=== PATIENT | female | born 2005 | race Caucasian/White ===

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

== ENCOUNTER → 2025-01-07 15:13 | Outpatient (BNVA) | payer MEDICAID, SELFPAY | PROVIDERS: Family Provider Family Medicine; PCP Family Medicine; Visit Provider Nurse Practitioner | DX: M79.604 Pain in right leg (principal) | CPT/HCPCS: 73590 ==

== ENCOUNTER → 2025-04-04 10:48 | Outpatient (BNVA) | payer MEDICAID, SELFPAY | PROVIDERS: PCP Family Medicine; Visit Provider Nurse Practitioner | DX: I10 Essential (primary) hypertension (principal); Z79.899 Other long term (current) drug therapy | CPT/HCPCS: 80048; 80061; 83036 ==

== ENCOUNTER → 2025-04-29 14:30 | Outpatient (BNVA) | payer MEDICAID, SELFPAY | PROVIDERS: PCP Family Medicine; Visit Provider Family Medicine | DX: R10.9 Unspecified abdominal pain (principal) | CPT/HCPCS: 81000; 87086 ==

== ENCOUNTER 2025-05-14 20:07 | Emergency (ER) | payer MEDICAID, SELFPAY ==
[2025-05-14 20:08] VITALS: BP 127/87; PULSE 99; RESP 20; TEMP 36.7; O2SAT 98; BMI 54.9
--- OUTSIDE RECORDS SUMMARY | 2025-05-14 20:13 | XMS_ITS | Clinical Summary ---
Author Organization [facility] Address [address] [facility] Attn: [place] [address] Care Team Providers Care Golf Club Manager Name Role Phone Balwinder Haynes MD Primary Care Provider [phone] Allergies No known active allergies Medications cetirizine (ZyrTEC) 10 mg tablet Take 1 Tablet (10 mg) by mouth daily. 90 Tablet 1 04/18/2020 Active diphenhydrAMINE (BENADRYL) 12.5 mg/5 mL solution Take 20 mL (50 mg) by mouth every 6 hours as needed for Allergies. 118 mL 1 04/18/2020 Active escitalopram oxalate (LEXAPRO) 10 mg tabletIndication s:Current severe episode of major depressive disorder with psychotic features, unspecified whether recurrent (CMS/HCC) TAKE ONE TABLET BY MOUTH EVERY MORNING 06/30/2021 Active ARIPiprazole (ABILIFY) 5 mg tabletIndication s:Current severe episode of major depressive disorder with psychotic features, unspecified whether recurrent (CMS/HCC) Take 1 Tablet (5 mg) by mouth daily. 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 [place] [id number] [facility] [address] [place] [address] Rosa Cantrell MD Noninfectious gastroenteritis, unspecified type (Primary Dx) from Last 3 Months Immunizations Immunization Administration Dates Next Due (ACTHIB/HIBERIX)(2 MOS-5 YRS /6 WKS-4 YRS) HAEMOPHILUS INFLUENZAE TYPE B VACCINE (HIB), PRP-T CONJUGATE, 4 DOSE, 0.5 ML IM 02/04/2009,2005,2005 (ADACEL/BOOSTRIX)(10 YR UP) TDAP VACCINE, 0.5ML, IM 02/13/2018 (GARDASIL)(9-45 YRS) HUMAN PAPILLOMAVIRUS VACCINE, TYPES 6, 11, 16, 18, QUADRIVALENT (4VHPV), 3 DOSE, IM 02/13/2018 (INFANRIX)(6 WKS-6 YRS) DIPT HERIA, TETANUS TOXOIDS, AND ACCELLULAR PERTUSSIS VACCINE (DTAP), 0.5 ML IM 02/04/2009,03/01/2006,2005,10/26 (IPOL)(6 WKS AND UP) POLIOVI KAREN VACCINE, INACTIVATED (IPV), 3 DOSE, SUBCUT OR IM 03/01/2006,2005,2005 (KINRIX/QUADRACEL)(4 - 6 YRS ) DIPHTHERIA, TETANUS TOXOIDS AND ACELLULAR PERTUSSIS VACCINE, POLIO, INACTIVATED (DTAP-IPV) (PF) IM 08/24/2010 (M-M-R II/PRIORIX)(12 MO UP) MEASLES, MUMPS AND RUBELLA VIRUS VACCINE, 0.5 ML IM/SUBCUT 08/24/2010,02/04/2009 (RECOMBIVAX HB/ENGERIX-B)(0- 19 YRS) HEPATITIS B VACCINE 5 MCG/0.5 ML OR 10 MCG/0.5 ML PED OR ADOL 3 DOSE (PF), IM 03/01/2006,2005,2005 (VARIVAX)(12 MOS UP)VARICELL A VIRUS VACCINE (PF) 0.5 ML, SUB CUT 08/24/2010,02/04/2009 Meningococcal A Conjugate Vaccine IM 02/13/2018 Meningococcal ACWY Vaccine, Unspecified Formulation 02/13/2018 Pneumococcal 7-valent conjug ate vaccine IM 03/01/2006,2005,2005 Family History Medical History Relation Name Comments Healthy Half-Brother Kranthi Asthma Maternal Grandfather COPD Maternal Grandfather Kidney Disease Maternal Grandmother Kidney Disease Mother Sobia polycystic ki dneys on peritoneal dialysis at home Healthy Sister 1 Winter Anxiety Sister 2 Depression Sister 2 Hx of inpatient admission Amblyopia Neg Hx Blindness Neg Hx Cataract Neg Hx Corneal Dystrophies Neg Hx Detachment/Tears Neg Hx Glaucoma Neg Hx [place]at[place]us Neg Hx Macular Degen Neg Hx Strabismus Neg Hx Relation Name Status Comments Father Juanito Alive Half-Brother Kranthi Alive Maternal Grandfather Alive Maternal Grandmother Mother Sobia Alive Paternal Grandfather Alive Paternal Grandmother Alive Sister 1 Winter Alive Sister 2 Alive Social History Tobacco Use Types Packs/Day Years Used Date Smoking Tobacco: Never Smokeless Tobacco: Never Alcohol Use Standard Drinks/Week Comments Never 0 (1 standard drink = 0.6 oz pur e alcohol) Adolescent Education Answer Date Record ed Getting School Help Needed Not on file 04/01 Comments No Sex and Gender Information Value Date Recorded Sex Assigned at Not on file Legal Sex Female 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 Gender Identity Not on file Sexual Orientation Not on file Last Filed Vital Signs Vital Sign Reading Time Taken Comments Blood Pressure 116/72 07/17/2021 4:40 PM CDT Pulse 102 07/17/2021 4:40 PM CDT Temperature 36.7 C (98 F) 07/17/2021 4:40 PM CDT Respiratory Rate 16 07/17/2021 4:40 PM CDT Oxygen Saturation 99% 07/17/2021 4:40 PM CDT Room Air Inhaled Oxygen Concentration - - Weight 118.7 kg (261 lb 9.6 oz) 07/17/2021 4:40 PM CDT Height 175.3 cm (5' 9 ) 07/17/2021 4:40 PM CDT Body Mass Index 38.63 07/17/2021 4:40 PM CDT Body Mass Index Percentile 99.36% 07/17/2021 4:4 0 PM CDT Growth Chart: CDC (Girls, 2- 20 Years) Plan of Treatment Upcoming Encounters Date Type Department Care Team (Late st Contact Info) Description 2025 8:00 AM FIELD TRAFFIC INVESTIGATOR Office Visit [facility] [place] [address] [facility] [address] [place] [phone] Nirmal Tam FNP [address] [facility] [address] [place] [phone] Health Maintenance Due Date Last Done Comments CHLAMYDIA SCREENING (ANNUAL) 11-24 YEARS 2016 HPV VACCINES (2 - 2-dose series) 08/15/2018 02/14/20 18 INFLUENZA VACCINE (#1) 2025 DTAP/TDAP/TD VACCINES (7 - T d or Tdap) 02/14/2028 02/13/2018, 08/24/2010, 02/04/2009, Additional history exists HEPATITIS B VACCINES Completed 03/01/2006, 2005, 2005 Insurance [facility] MEDICAID Care Teams Golf Club Manager Relationship Specialty Start Date End Date Balwinder Haynes MD [address] [place] [address] PCP - General Family Practice 02/02/18
--- OUTSIDE RECORDS SUMMARY | 2025-05-14 20:14 | XMS_ITS | Encounter Summary ---
Author Organization [email or web address] Address [address] [address] Phone Care Team Providers Care Photocomposing Machine Operator Name Role Phone Rosa Cantrell MD Primary Care Provider [phone] Reason for Visit * Reason Comments Med Refill Encounter Details Date Type Department Care Team (Late st Contact Info) Description 12/23/2024 Refill [email or web address] [address] [address] Michel Duff MD [address] [address] Obesity; Polycystic kidney Social History Tobacco Use Types Packs/Day Years Used Date Smoking Tobacco: Never Smokeless Tobacco: Never Alcohol Use Standard Drinks/Week Comments Never 0 (1 standard drink = 0.6 oz pur e alcohol) Comments No Sex and Gender Information Value Date Recorded Sex Assigned at Not on file Legal Sex Female 10:34 AM EDT Gender Identity Not on file Sexual Orientation Not on file documented as of this encounter Plan of Treatment Upcoming Encounters Date Type Department Care Team (Late st Contact Info) Description 05/22/2025 1:50 PM CDT Office Visit [email or web address] [address] [place] [address] Michel Duff MD [address] [facility] [address] [address] documented as of this encounter Visit Diagnoses Diagnosis Obesity Polycystic kidney documented in this encounter Care Teams Photocomposing Machine Operator Relationship Specialty Start Date End Date Rosa Cantrell MD [address] [place] [id number] PCP - General Family Medicine 02/17/23 documented as of this encounter
--- OUTSIDE RECORDS SUMMARY | 2025-05-14 20:14 | XMS_ITS | Clinical Summary ---
Author Organization [facility] Address [address] [address] Care Team Providers Care Collection Administrator Name Role Phone Balwinder Haynes MD Primary Care Provider [phone] Allergies No known active allergies Medications ketoconazole (NIZORAL) 1 % Shampoo Use as directed to affected areas 200 mL 09/25/2019 Active ondansetron (Zofran ODT) 4 mg Tablet, Rapid Dissolve Take 1 Tablet (4 mg) by mouth every 8 hours as needed for Nausea/Emesis . Dissolve tablet on top of tongue, then swallow with saliva. 20 Tablet 09/25/2019 Active cetirizine (ZyrTEC) 10 mg tablet Take 1 Tablet (10 mg) by mouth daily. 90 Tablet 1 04/18/2020 Active diphenhydrAMINE (BENADRYL) 12.5 mg/5 mL solution Take 20 mL (50 mg) by mouth every 6 hours as needed for Allergies. 118 mL 1 04/18/2020 Active prednisoLONE (PRELONE) 15 mg/5 mL solution 15 mls PO for 4 days , then 10 mls for 3 days, then 5 ml for 3 days, then 2.5 mls for 3 days then 2.5 mls every other day for 3 doses. 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 Old exam most consistent with bilateral [place] with pseudo OA IO OD>OS, fixes OD. No neuroophthalmic pattern seen, pt cannot fuse. 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 Old surgical records to see mentioned bifrontal advancement, but no specific mention that trochlea had surgical manipulation. Strongly suspect patient is suppressing left eye, so surgical repair is optional and cosmetic at this time. Assessment & Plan (08/23/2018 2:50 PM DIRECTOR PROSPECT): SENSORIMOTOR EXAM ANALYSIS: Difficult end point with measurements due to poor vision OS. Exam most consistent with bilateral [place] with pseudo OA IO OD>OS, fixes OD. No neuroophthalmic pattern seen, pt cannot fuse. 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 Will try to get old surgical records to see what type of surgery done in past, and if trochlea had surgical repair. Strongly suspect patient is suppressing left eye, so surgical repair is optional and cosmetic at this time. Irregular astigmatism of left eye 08/23/2018 Assessment & Plan (08/27/2019 11:39 AM DIRECTOR PROSPECT): . At her last complete eye exam patient was found to have severe astigmatism in the left eye and myopia with mild astigmatism in the right eye. Patient was referred to our corneal service where corneal thinning was noted with a suspicion for keratoconus and was asked to return in 6 months. Patient is currently not wearing her full cycloplegic refraction of the left eye due to a decrease in her best corrected visual acuity. Assessment & Plan (08/23/2018 2:51 PM DIRECTOR PROSPECT): Severe, will not tolerate full Rx. No gross signs of keratoconus on corneal exam but measurements suggestive of this. Recommend corneal topography and evaluation by cornea service to refer for cross linking PRN. Amblyopia, refractive, left 08/23/2018 Assessment & Plan (08/27/2019 11:35 AM DIRECTOR PROSPECT): Patient currently wearing less than full cycloplegic refraction left eye, too old to reverse refractive amblyopia. Assessment & Plan (08/23/2018 1:50 PM DIRECTOR PROSPECT): Severe anisometropia, too old for patching therapy. Myopia of both eyes 08/23/2018 Assessment & Plan (08/23/2018 2:48 PM DIRECTOR PROSPECT): Pt complaint at this time is blurriness of vision suspect is suppressing vision with left eye. Will give full Rx OD and partial Rx OS to help with BCVA. 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 Abnormal head shape 02/14/2018 Cafe au lait spots 02/14/2018 Ptosis of left eyelid 02/14/2018 Family history of polycystic kidney disease 01/2018 Immunizations Immunization Administration Dates Next Due (ACTHIB/HIBERIX)(2 [...] Family History Medical History Relation Name Comments Asthma Maternal Grandfather COPD Maternal Grandfather Kidney Disease Maternal Grandmother Kidney Disease Mother Sobia polycystic ki dneys on peritoneal dialysis at home Healthy Sister Winter Amblyopia Neg Hx Blindness Neg Hx Cataract Neg Hx Corneal Dystrophies Neg Hx Detachment/Tears Neg Hx Glaucoma Neg Hx Keratoconus Neg Hx Macular Degen Neg Hx Strabismus Neg Hx Relation Name Status Comments Brother [place] Alive Father Juanito Alive Maternal Grandfather Alive Maternal Grandmother Mother Sobia Alive Paternal Grandfather Alive Paternal Grandmother Alive Sister Winter Alive Social History Tobacco Use Types Packs/Day Years Used Date Smoking Tobacco: Never Smokeless Tobacco: Never Comments No Sex and Gender Information Value Date Recorded Sex Assigned at Not on file Legal Sex Female 10:48 AM CDT Gender Identity Not on file Sexual Orientation Not on file Last Filed Vital Signs Vital Sign Reading Time Taken Comments Blood Pressure 114/72 04/22/2020 8:15 AM CDT Pulse 98 04/22/2020 8:15 AM CDT Temperature 36.7 C (98.1 F) 04/22/2020 8:15 AM CDT Respiratory Rate 18 04/22/2020 8:15 AM CDT Oxygen Saturation 94% 04/22/2020 8:15 AM CDT Room Air Inhaled Oxygen Concentration - - Weight 122 kg (269 lb) 04/22/2020 8:15 AM CDT Height 170.2 cm (5' 7 ) 04/22/2020 8:15 AM CDT Body Mass Index 42.13 04/22/2020 8:15 AM CDT Body Mass Index Percentile 99.91% 04/22/2020 8:1 5 AM CDT Growth Chart: CDC (Girls, 2- 20 Years) Plan of Treatment Health Maintenance Due Date Last Done Comments CHLAMYDIA SCREENING (ANNUAL) 11-24 YEARS 2016 HPV VACCINES (2 - 2-dose series) 08/15/2018 02/14/20 18 Preventative Visit-Managed Medicaid 2024 05/02/2019, 02/13/2018 INFLUENZA VACCINE (#1) 2025 DTAP/TDAP/TD VACCINES (7 - T d or Tdap) 02/14/2028 02/13/2018, 08/24/2010, 02/04/2009, Additional history exists HEPATITIS B VACCINES Completed 03/01/2006, 2005, 2005 Insurance [facility] MEDICAID Care Teams Collection Administrator Relationship Specialty Start Date End Date Balwinder Haynes MD [address], [place] [address] PCP - General Family Practice 02/02/18
--- OUTSIDE RECORDS SUMMARY | 2025-05-14 20:14 | XMS_ITS | Clinical Summary ---
Author Organization [facility] Address [address] [place] [id number] Care Team Providers Care Boat Diesel Motor Mechanic Name Role Phone Rosa Cantrell MD Primary Care Provider [phone] Allergies No known active allergies Medications cetirizine (ZyrTEC) 10 MG tablet Take 10 mg by mouth in the morning. Active diphenhydrAMINE (BENADRYL) 12.5 MG/5ML elixir Take 50 mg by mouth every 6 (six) hours if needed Active spironolactone (ALDACTONE) 25 MG tablet Take 25 mg by mouth 1 (one) time each day Active citalopram (CeleXA) 40 MG tablet Take 40 mg by mouth 1 (one) time each day Active traZODone (DESYREL) 50 MG tablet Take 50 mg by mouth every night Active hydrOXYzine (ATARAX) 25 MG tablet Take 1 tablet by mouth 3 (three) times a day if needed 023 Active omeprazole (PriLOSEC) [address] capsule Take 20 mg by mouth 1 (one) time each day 023 Active ondansetron ODT (ZOFRAN-ODT) 4 MG dispersible tablet 1 TABLET DISSOLVED ON TONGUE EVERY 6 HOURS NEEDED FOR NAUSEA AND VOMITING 023 Active lisinopril 20 MG tablet Take 20 mg by mouth 1 (one) time each day 024 Active Invega Sustenna 156 MG/ML suspension prefilled syringe INJECT INTRAMUSCULARLY every 30 DAYS Active propranolol (INDERAL) 20 MG tablet TAKE ONE TABLET BY MOUTH THREE TIMES A DAY NEEDED FOR ANXIETY Active tiZANidine (ZANAFLEX) 2 MG tablet TAKE ONE TABLET BY MOUTH TWICE DAILY NEEDED FOR muscle spasticity Active cholestyramine (QUESTRAN) 4 GM/DOSE powder Take 4 g by mouth in the morning and 4 g at noon and 4 g in the evening. Take with meals. 024 Active Ozempic, 0.25 or 0.5 MG/DOSE, 2 MG/3ML solution pen-injectorInd ications:Obesit y,Polycystic kidney,Essentia l (primary) hypertension inject 0.25mg UNDER THE SKIN EVERY 7 DAYS FOR 28 DAYS, THEN 0.5mg EVERY 7 DAYS FOR 28 DAYS 3 mL 025 Active Ozempic, 0.25 or 0.5 MG/DOSE, 2 MG/3ML solution pen-injectorInd ications:Obesit y,Polycystic kidney,Essentia l (primary) hypertension inject 0.25mg UNDER THE SKIN EVERY 7 DAYS FOR 28 DAYS, THEN 0.5mg EVERY 7 DAYS FOR 28 DAYS 3 mL 025 2024 Discontinued Active Problems Problem Noted Date Diagnosed Date Autosomal dominant polycystic kidney disease 12/2023 Essential (primary) hypertension 12/15/2023 Morbid obesity 12/15/2023 Family history of polycystic kidney disease 01/2018 Encounters Date Type Department Care Team Description 04/15/2025 [facility] [address] [facility] [address] [place] [id number] Radha Haley NP Obesity; Polycystic kidney; Essential (primary) hypertension 03/12/2025 [facility] [address] [place] [address] [place] [phone] Radha Haley NP Obesity; Polycystic kidney; Essential (primary) hypertension 02/11/2025 [facility] [address] [address] [place] [phone] Radha Haley NP Obesity; Polycystic kidney; Essential (primary) hypertension from Last 3 Months Family History Medical History Relation Comments Kidney disease Brother Kidney disease Maternal Grandmother Kidney disease Mother Relation Status Comments Brother Alive Maternal Grandmother Alive Mother Alive Social History Tobacco Use Types Packs/Day Years Used Date Smoking Tobacco: Never Smokeless Tobacco: Never Tobacco Cessation:Counseling Given: Not Answered Alcohol Use Standard Drinks/Week Comments Never 0 (1 standard drink = 0.6 oz pur e alcohol) Comments No Sex and Gender Information Value Date Recorded Sex Assigned at Not on file Legal Sex Female 10:34 AM EDT Gender Identity Not on file Sexual Orientation Not on file Last Filed Vital Signs Vital Sign Reading Time Taken Comments Blood Pressure 138/70 11/20/2024 11:02 AM CDT Pulse 91 11/20/2024 10:24 AM CDT Temperature - - Respiratory Rate - - Oxygen Saturation 97% 11/20/2024 10:24 AM CDT Inhaled Oxygen Concentration - - Weight 167 kg (368 lb) 11/20/2024 10:24 AM CDT Height 172.7 cm (5' 8 ) 11/20/2024 10:24 AM CDT Body Mass Index 55.95 11/20/2024 10:24 AM CDT Plan of Treatment Upcoming Encounters Date Type Department Care Team (Late st Contact Info) Description 05/22/2025 1:50 PM CDT Office Visit [facility] [address] [place] [address] Michel Duff MD [address] [address] Health Maintenance Due Date Last Done Comments Pneumococcal Vaccine: Peds ( 0 to 5 Years) and At-Risk Patients (6 to 49 Years) (1 of 2 - PCV) 2024 03/01/2006, 2005, 2005 Influenza Vaccine (#1) 2025 Hepatitis B Vaccine Completed 03/01/2006, 2005, 2005 Insurance Medicaid [place] ([facility]) Care Teams Boat Diesel Motor Mechanic Relationship Specialty Start Date End Date Rosa Cantrell MD [address] [id number] PCP - General Family Medicine 02/17/23
--- OUTSIDE RECORDS SUMMARY | 2025-05-14 20:14 | XMS_ITS | Encounter Summary ---
Author Organization [facility] [facility] [facility], [facility] Address [address] [facility] [place] [address] [place] [address] Phone Care Team Providers Care Horticulture Supervisor Name Role Phone Rosa Cantrell MD Primary Care Provider [phone] Encounter Details Date Type Department Care Team (Late st Contact Info) Description 02/17/2023 Orders Only [facility] [address] [facility] [place] [address] [place] [address] Polycystic kidney, unspecified type Social History Tobacco Use Types Packs/Day Years Used Date Smoking Tobacco: Never Assessed Comments Unknown Sex and Gender Information Value Date Recorded Sex Assigned at Not on file Legal Sex Female 10:34 AM EDT Gender Identity Not on file Sexual Orientation Not on file documented as of this encounter Plan of Treatment Upcoming Encounters Date Type Department Care Team (Late st Contact Info) Description 05/22/2025 1:50 PM CDT Office Visit [facility] [address] [place], [place] [id number] Michel Duff MD [address] [facility] [place] [address] [place] [address] documented as of this encounter Visit Diagnoses Diagnosis Polycystic kidney, unspecified type documented in this encounter Care Teams Horticulture Supervisor Relationship Specialty Start Date End Date Rosa Cantrell MD [address], [place] [address] PCP - General Family Medicine 02/17/23 documented as of this encounter
[2025-05-14 20:38] LABS: Glucose Urine UA Negative (Normal); Nitrate Urine Negative (Negative); Specific Gravity, Urine 1.019 (1.005-1.030)
[2025-05-14 20:43] LABS: Add Urine Microscopic? YES
== END 2025-05-14 21:20 | disposition left against medical advice (07) ==
LOC: ER 20:12
PROVIDERS: Emergency Provider Family Medicine; PCP Family Medicine
DX: Z01.89 Encounter for other specified special examinations (principal); Z53.21 Procedure and treatment not carried out due to patient leaving prior to being seen by health care provider
CPT/HCPCS: 81001

== ENCOUNTER → 2025-05-15 14:14 | Outpatient (BNVA) | payer MEDICAID, SELFPAY | PROVIDERS: PCP Family Medicine; Visit Provider Family Medicine | DX: N18.9 Chronic kidney disease, unspecified (principal) | CPT/HCPCS: 80069; 82043 ==

== ENCOUNTER → 2025-05-16 11:20 | Outpatient (BNVA) | payer MEDICAID, SELFPAY | PROVIDERS: PCP Family Medicine; Visit Provider Nurse Practitioner | DX: R10.9 Unspecified abdominal pain (principal) | CPT/HCPCS: 81000; 87086 ==